=== PATIENT | male | born 1995 ===

== ENCOUNTER 2021-01-13 14:59 | Emergency (ER) | payer SELFPAY ==
[~2021-01-13] VITALS: Ht 165.1 cm; Wt 79.4 kg
== END 2021-01-13 16:44 | disposition home or self-care (01) ==
LOC: ER 14:59
DX: S61.011A Laceration without foreign body of right thumb without damage to nail, initial encounter (principal); Z23 Encounter for immunization; W26.0XXA Contact with knife, initial encounter
CPT/HCPCS: 12002; 90471; 90714; 99282-25